=== PATIENT | male | born 1985 | race Caucasian/White ===

== ENCOUNTER 2018-08-06 07:01 | Day surgery (SDC) | payer OTHER, MEDICARE ==
[~2018-08-06] VITALS: Ht 172.7 cm; Wt 92.3 kg
[~2018-08-06 07:01] MED LIST: BENZ0.5T44 PO; CLON1 PO; DIPH25 PO; DIPH50 PO; DIVA500T52 PO; DOCU250C90 PO; LANO250L TP; LEVO100 PO; LITH300C3 PO; LITH600 PO; LOVA20 PO; MIRT15 PO; MULT-723 PO; OLAN10TA6 PO; OMEG-135 PO; POLY238P2 PO; RINGERS SOLUTION,LACTATED 1,000 ML IV ONE; VITAD400 PO; [UNRECOGNIZED DRUG - CODE] TP
[2018-08-06] MEDS ORDERED: FentaNYL CITRATE-PF 100 MCG/2 ML VIAL IVP ONE (07:02)
[2018-08-06] MEDS ORDERED: AMPICILLIN SODIUM 1 GM/VIAL ONE (08:00)
[2018-08-06 08:07] LABS: PROTHROMBIN TIME 10.2 SEC (9.4-11.6)
[2018-08-06] MEDS ORDERED: SUGAMMADEX SODIUM 200 MG/2 ML VIAL IVP ONE (08:38)
[2018-08-06] MEDS: RINGERS SOLUTION,LACTATED 1,000 ML IV ONE (10:37)
== END 2018-08-06 15:00 | disposition home or self-care (01) ==
LOC: SURGERY 07:01
PROVIDERS: ATTEND Dentist General Practice
DX: K05.30 Chronic periodontitis, unspecified (principal); K03.6 Deposits [accretions] on teeth; E03.9 Hypothyroidism, unspecified; F41.9 Anxiety disorder, unspecified; K21.9 Gastro-esophageal reflux disease without esophagitis; G47.00 Insomnia, unspecified; E66.9 Obesity, unspecified; E78.5 Hyperlipidemia, unspecified; Z88.8 Allergy status to other drugs, medicaments and biological substances; Z91.041 Radiographic dye allergy status; Z68.30 Body mass index [BMI] 30.0-30.9, adult
CPT/HCPCS: 93005; J0290; J3010; J7120

== ENCOUNTER 2021-08-02 06:31 | Day surgery (SDC) | payer OTHER, MEDICARE ==
[~2021-08-02 06:31] MED LIST changes: -BENZ0.5T44 PO; +BENZ0.5T49 PO; +CHOL400T56 PO; +CLON-595 PO; -CLON1 PO; +DIVA-80 PO; -DIVA500T52 PO; +DOCU-378 PO; -DOCU250C90 PO; -LITH600 PO; +LITH600C5 PO; -LOVA20 PO; +LOVA20TA73 PO; +MIRT-89 PO; -MIRT15 PO; +OLAN10TA26 PO; -OLAN10TA6 PO; +OMEG-108 PO; -OMEG-135 PO; +POLY238P PO; -POLY238P2 PO; -VITAD400 PO
[2021-08-02] MEDS ORDERED: PROPOFOL 1% 20 ML VIAL IVP ONE (06:32)
[2021-08-02] MEDS ORDERED: MIDAZOLAM HCL 2 MG/2 ML VIAL IVP ONE (06:32)
[2021-08-02] MEDS ORDERED: LIDOCAINE/PF 2% 5 ML VIAL IM ONE (06:32)
[2021-08-02] MEDS ORDERED: ONDANSETRON HCL 4 MG/2 ML VIAL IVP ONE (06:32)
[2021-08-02] MEDS ORDERED: FentaNYL CITRATE PF 100 MCG/2 ML VIAL IVP ONE (06:32)
[2021-08-02 07:10] LABS: COVID AG,FIA SOURCE NASOPHARYNGEAL
[2021-08-02 08:14] LABS: BASOPHILS % (AUTO) 0.2 % (0.0-2.0); EOSINOPHILS % (AUTO) 2.4 % (1.0-6.0); HEMATOCRIT 47.1 % (41-53); HEMOGLOBIN 16.3 g/dL (13.5-17.5); LYMPHOCYTES # (AUTO) 1.8 K/uL (1.0-4.8); LYMPHOCYTES % (AUTO) 22.9 % (22.0-44.0); MEAN CORPUSCULAR HEMOGLOBIN 31.1 pg (26.0-34.0); MEAN CORPUSCULAR HGB CONC 34.6 G/dL (31.0-37.0); MEAN CORPUSCULAR VOLUME 90 fL (80-100); MONOCYTES # (AUTO) 0.5 K/uL (0.1-1.0); MONOCYTES % (AUTO) 6.1 % (2.0-9.0); NEUTROPHILS # (AUTO) 5.4 K/uL (1.8-7.7); NEUTROPHILS % (AUTO) 68.4 % (40.0-70.0); PLATELET COUNT (AUTO) 248 K/uL (150-450); RED BLOOD CELL COUNT(AUTO) 5.23 MIL/uL (4.50-5.90); RED CELL DISTRIBUTION WIDTH 12.8 % (11.5-14.5)
[2021-08-02] MEDS ORDERED: RINGERS SOLUTION,LACTATED 1,000 ML IV ONE (08:16)
[2021-08-02 08:27] LABS: PROTHROMBIN TIME 10.5 SEC (9.4-11.6)
[2021-08-02 08:31] LABS: ANION GAP 11 mmol/L (8-16); CALCIUM, TOTAL 10.1 mg/dL (8.8-10.5); CARBON DIOXIDE 25 mmol/L (22-29); CHLORIDE 104 mmol/L (98-107); CREATININE 0.95 mg/dL (0.60-1.30); GLOMERULAR FILTR. RATE CALC > 60 mL/min (>60); GLUCOSE,RANDOM 92 mg/dL (70-110); POTASSIUM 4.3 mmol/L (3.5-5.1); SODIUM SERUM 140 mmol/L (136-145); UREA NITROGEN, BLOOD 15 mg/dL (7-18)
[2021-08-02 08:38] LABS: ALANINE AMINOTRANSFERASE 56 U/L (12-78); ALBUMIN 4.2 g/dL (3.4-5.0); ALKALINE PHOSPHATASE 80 U/L (46-116); ASPARTATE AMINOTRANSFERASE 22 U/L (15-37); BILIRUBIN,TOTAL 0.5 mg/dL (0.1-1.0)
== END 2021-08-02 11:25 | disposition home or self-care (01) ==
LOC: SURGERY 06:31
PROVIDERS: ATTEND Dentist General Practice
DX: K02.9 Dental caries, unspecified (principal); K05.30 Chronic periodontitis, unspecified; K03.6 Deposits [accretions] on teeth; F32.9 Major depressive disorder, single episode, unspecified; F25.9 Schizoaffective disorder, unspecified; E78.5 Hyperlipidemia, unspecified; F84.0 Autistic disorder; L28.0 Lichen simplex chronicus; K59.00 Constipation, unspecified; F41.9 Anxiety disorder, unspecified; Z79.01 Long term (current) use of anticoagulants; Z79.899 Other long term (current) drug therapy; Z98.890 Other specified postprocedural states; Z88.8 Allergy status to other drugs, medicaments and biological substances
CPT/HCPCS: 36415; 41899; 71045; 80053; 85025; 85610; 85730; 87426; C9803; J2250; J2405; J2704; J3010; J3490; J7120; Z7610

== ENCOUNTER 2024-05-13 06:46 | Day surgery (SDC) | payer OTHER, MEDICARE ==
[~2024-05-13] VITALS: Ht 170.2 cm; Wt 95.5 kg
[~2024-05-13 06:46] MED LIST changes: -BENZ0.5T49 PO; +BENZ0.5T52 PO; +DIPH-1243 PO; -DIPH25 PO; +DIVA-153 PO; -DIVA-80 PO; -OMEG-108 PO; +OMEG-135 PO
[2024-05-13 07:47] LABS: BASOPHILS % (AUTO) 0.3 % (0.0-2.0); EOSINOPHILS % (AUTO) 3.4 % (1.0-6.0); HEMATOCRIT 41.2 % (41-53); HEMOGLOBIN 14.1 g/dL (13.5-17.5); LYMPHOCYTES # (AUTO) 1.8 K/uL (1.0-4.8); LYMPHOCYTES % (AUTO) 25.4 % (22.0-44.0); MEAN CORPUSCULAR HEMOGLOBIN 31.4 pg (26.0-34.0); MEAN CORPUSCULAR HGB CONC 34.1 G/dL (31.0-37.0); MEAN CORPUSCULAR VOLUME 92 fL (80-100); MONOCYTES # (AUTO) 0.5 K/uL (0.1-1.0); MONOCYTES % (AUTO) 7.7 % (2.0-9.0); NEUTROPHILS # (AUTO) 4.4 K/uL (1.8-7.7); NEUTROPHILS % (AUTO) 63.2 % (40.0-70.0); PLATELET COUNT (AUTO) 297 K/uL (150-450); RED BLOOD CELL COUNT(AUTO) 4.48 MIL/uL (4.50-5.90); RED CELL DISTRIBUTION WIDTH 12.7 % (11.5-14.5)
[2024-05-13] MEDS ORDERED: AMPICILLIN SODIUM 2 GM/NS 100 ML IV ONE (07:48)
[2024-05-13 07:58] LABS: ANION GAP 8 mmol/L (8-16); CALCIUM, TOTAL 9.1 mg/dL (8.8-10.5); CARBON DIOXIDE 26 mmol/L (22-29); CHLORIDE 105 mmol/L (98-107); CREATININE 1.15 mg/dL (0.60-1.30); GLOMERULAR FILTR. RATE CALC > 60 mL/min (>60); GLUCOSE,RANDOM 98 mg/dL (70-110); POTASSIUM 4.4 mmol/L (3.5-5.1); SODIUM SERUM 139 mmol/L (136-145); UREA NITROGEN, BLOOD 18 mg/dL (7-18)
[2024-05-13 08:00] LABS: PROTHROMBIN TIME 10.3 SEC (9.4-11.6)
[2024-05-13 08:03] LABS: ALANINE AMINOTRANSFERASE 41 U/L (12-78); ALBUMIN 3.6 g/dL (3.4-5.0); ALKALINE PHOSPHATASE 65 U/L (46-116); ASPARTATE AMINOTRANSFERASE 18 U/L (15-37); BILIRUBIN,TOTAL 0.3 mg/dL (0.1-1.0); TOTAL PROTEIN, SERUM 7.4 g/dL (6.4-8.2)
[2024-05-13] MEDS: RINGERS SOLUTION,LACTATED 1,000 ML IV ONE (10:36)
[2024-05-13] MEDS ORDERED: SUGAMMADEX SODIUM 200 MG/2 ML VIAL IVP ONE (12:00)
[2024-05-13] MEDS ORDERED: DEXAMETHASONE SOD PHOS 4 MG/ML VIAL IVP ONE (12:00)
[2024-05-13] MEDS ORDERED: ONDANSETRON HCL 4 MG/2 ML VIAL IVP ONE (12:00)
[2024-05-13] MEDS ORDERED: PROPOFOL 1% 20 ML VIAL IVP ONE (12:00)
[2024-05-13] MEDS ORDERED: LIDOCAINE/PF 2% 5 ML VIAL IM ONE (12:00)
[2024-05-13] MEDS ORDERED: ROCURONIUM BROMIDE 10 MG/ML 5 ML VIAL IVP ONE (12:00)
== END 2024-05-13 11:15 | disposition home or self-care (01) ==
LOC: SURGERY 06:46
PROVIDERS: ATTEND Dentist General Practice
DX: K02.9 Dental caries, unspecified (principal); K05.30 Chronic periodontitis, unspecified; F32.A Depression, unspecified; E55.9 Vitamin D deficiency, unspecified; F25.9 Schizoaffective disorder, unspecified; F41.9 Anxiety disorder, unspecified; K03.6 Deposits [accretions] on teeth; E78.5 Hyperlipidemia, unspecified; F79 Unspecified intellectual disabilities; G47.00 Insomnia, unspecified; K59.00 Constipation, unspecified; Z79.01 Long term (current) use of anticoagulants; Z79.899 Other long term (current) drug therapy; Z88.8 Allergy status to other drugs, medicaments and biological substances; Z98.890 Other specified postprocedural states
CPT/HCPCS: 41899; 71045; 80053; 85025; 85610; 85730; 36415; 93005; J0290; J2704; J1100; J3490 ×3; J2405; J7120